=== PATIENT | female | born 1960 | race Two or more races ===

== ENCOUNTER 2021-08-24 05:10 | Day surgery (SDC) | payer OTHER | END 2021-08-24 13:15 | disposition home or self-care (01) | LOC: AMB-ENDOS 05:10 | PROVIDERS: ATTEND Surgery | DX: K62.89 Other specified diseases of anus and rectum (principal); K64.8 Other hemorrhoids; Z20.822 Contact with and (suspected) exposure to COVID-19 ==

== ENCOUNTER 2021-09-27 07:08 | Outpatient (CLI) | payer OTHER | END 2021-09-27 07:57 | disposition home or self-care (01) | LOC: TOM 07:08 | PROVIDERS: ATTEND Surgery | DX: K57.30 Diverticulosis of large intestine without perforation or abscess without bleeding (principal); K62.5 Hemorrhage of anus and rectum; R19.4 Change in bowel habit; R19.7 Diarrhea, unspecified; R10.9 Unspecified abdominal pain; K64.8 Other hemorrhoids ==

== ENCOUNTER 2022-09-19 08:45 | Inpatient (IN) | payer OTHER ==
[~2022-09-19] VITALS: Ht 157.5 cm; Wt 72.6 kg
[2022-09-19] MEDS ORDERED: LEVO-T25 MCG PO (11:13)
[2022-09-19] MEDS ORDERED: LIPITOR20 MG PO (11:14)
[2022-09-19] MEDS ORDERED: PRILOSEC OTC20 MG PO (11:14)
[2022-09-19] MEDS ORDERED: HYFIBER WI12 GM/303 PO (11:15)
[2022-09-25] MEDS ORDERED: NEURONTIN300 MG PO (09:36)
[2022-09-25] MEDS ORDERED: INTESTINEX680 M1 PO (09:36)
[2022-09-25] MEDS ORDERED: PERCOCET 5-3251 EACH PO (09:36)
== END 2022-09-25 13:19 | disposition home or self-care (01) | DRG 331 ==
LOC: O/R 09-22 05:06 → SURH 09-22 08:45
PROVIDERS: ADMIT Surgery; ATTEND Surgery
PROC: 0DBP4ZZ Excision of Rectum, Percutaneous Endoscopic Approach (ICD-10-PCS; 2022-09-22)
PROC: 0DNN4ZZ Release Sigmoid Colon, Percutaneous Endoscopic Approach (ICD-10-PCS; 2022-09-22)
PROC: 0DJD8ZZ Inspection of Lower Intestinal Tract, Via Natural or Artificial Opening Endoscopic (ICD-10-PCS; 2022-09-22)
PROC: 0DTN4ZZ Resection of Sigmoid Colon, Percutaneous Endoscopic Approach (ICD-10-PCS; principal; 2022-09-22 12:15)
DX: K57.30 Diverticulosis of large intestine without perforation or abscess without bleeding (principal); Z20.822 Contact with and (suspected) exposure to COVID-19; K66.0 Peritoneal adhesions (postprocedural) (postinfection)